=== PATIENT | female | born 1980 | race Hispanic/Latino ===

== ENCOUNTER 2018-11-03 16:06 | Outpatient (CLI) | payer OTHER ==
--- NOTE | 2018-11-04 15:18 | Mammography Report ---
BILATERAL DIGITAL SCREENING MAMMOGRAM WITH CAD:11/03/18 16:15:00 CLINICAL: Baseline screening. FINDINGS: The breasts are heterogeneously dense, which may obscure small masses in the breast density is sufficient to limit the sensitivity of mammography. Rightasymmetries require additional imaging. No architectural distortion or suspicious calcifications. The left breast is negative. IMPRESSION: Right asymmetries requiring further workup. BI-RADS CATEGORY: 0 -- Needs Additional Imaging RECOMMENDATION: Recall for right LM and spot compression views and right breast ultrasound if needed. ACR BI-RADS MAMMOGRAPHIC CODES: 0 = Needs additional imaging evaluation; 1 = Negative; 2 = Benign; 3 = Probably benign; 4 = Suspicious; 5 = Malignant; 6 = Known biopsy-proven malignancy COMMENT: 1. Dense breast tissue, i.e., adenosis, fibrocystic changes, etc., may obscure an underlying neoplasm. 2. Approximately 10% of cancers are not detected with mammography. 3. A negative mammography report should not delay biopsy if a clinically suspicious mass is present.
== END 2018-11-03 16:07 | disposition home or self-care (01) ==
LOC: SPVWC 16:06
PROVIDERS: ATTEND Obstetrics & Gynecology
DX: Z12.31 Encounter for screening mammogram for malignant neoplasm of breast (principal)
CPT/HCPCS: 77067

== ENCOUNTER 2019-04-04 08:53 | Outpatient (CLI) | payer OTHER ==
--- NOTE | 2019-04-04 10:16 | Mammography Report ---
RIGHT DIGITAL DIAGNOSTIC MAMMOGRAM WITH CAD 04/04/2019 RIGHT LIMITED BREAST ULTRASOUND INDICATION: Callback from abnormal screening mammogram TECHNIQUE: Digital right mammographic imaging was performed. Spot compression views were obtained. L imited ultrasound was performed. This examination was interpreted with the benefit of Computer-Aided Detection (CAD) analysis. COMPARISON: Screening mammogram 11/03/2018 FINDINGS: Breast Density: The breasts are heterogeneously dense, which may obscure small masses. There is no evidence of dominant mass, suspicious calcifications or architectural distortion in the r ight breast. Asymmetry noted on screening mammogram resolves with compression imaging. Due to the pre sence of dense tissue in the region of the asymmetry noted on screening mammogram, sonographic evalua tion will also be performed. Ultrasound Findings: Targeted ultrasound evaluation was performed of the area of interest. There is a solid oval slightly irregular mass in the 1:00 position of the right breast, 4 cm from the nipple. This mass measures 1.5 x 0.7 x 1.3 cm. IMPRESSION: Solid mass is present in the 1:00 position of the right breast. Ultrasound-guided biopsy is recommended for further evaluation. BI-RADS Category 4: Suspicious for Malignancy. Ultrasound-guided biopsy is recommended. A "normal" or negative report should not discourage follow up or biopsy of a clinically significant f inding. A written summary of these findings will be mailed to the patient. The patient will be entered into a mammography reporting system which will generate a reminder letter for the patient's next appointmen t at the appropriate interval. FURTHER INFORMATION: According to the [employer], yearly mammograms are recommend ed starting at age 40 and continuing as long as a woman is in good health. Breast MRI is recommended for women with an approximately 20-25% or greater lifetime risk of breast cancer, including women wi th a strong family history of breast or ovarian cancer and women who have been treated for Hodgkin's disease. Signer Name: Ernestina Kaur MD Signed: 04/04/2019 10:12 AM Workstation Name: [id number]
== END 2019-04-04 08:54 | disposition home or self-care (01) ==
LOC: SPVWC 08:53
PROVIDERS: ATTEND Obstetrics & Gynecology
DX: N64.89 Other specified disorders of breast (principal); N63.12 Unspecified lump in the right breast, upper inner quadrant